=== PATIENT | male | born 1990 | race Caucasian/White ===

== ENCOUNTER 2018-02-24 14:00 | Emergency (ER) | payer MEDICAID ==
[~2018-02-24] VITALS: Ht 167.6 cm; Wt 62.6 kg
[2018-02-24 14:08] VITALS: Ht 167.6 cm; Wt 62.6 kg
[2018-02-24 16:02] LABS: PLATELET COUNT 185 x10^3mcL (130-400); RED CELL DISTRIBUTION WIDTH 13.4 % (11.5-14.5)
[2018-02-24 16:15] LABS: CALCIUM 8.7 mg/dL (8.5-10.1); CARBON DIOXIDE 29.2 mmol/L (21-32); CHLORIDE SERUM 100 mmol/L (98-107); GFR1 > 60 mL/min; GLUCOSE SERUM 111 mg/dL (74-106); POTASSIUM SERUM 3.6 mmol/L (3.5-5.1); SODIUM SERUM 135 mmol/L (136-145)
[2018-02-24 16:22] LABS: ALBUMIN 3.9 g/dL (3.4-5.0); ALKALINE PHOSPHATASE 86 U/L (46-116); ALT/SGPT 24 U/L (16-63); AST/SGOT 16 U/L (15-37); BILIRUBIN TOTAL 0.2 mg/dL (0.20-1.00); LIPASE 98 IU/L (73-393); TOTAL PROTEIN, SERUM 7.7 g/dL (6.4-8.2)
[2018-02-24 18:25] VITALS: BP 142/84
== END 2018-02-24 18:25 | disposition home or self-care (01) ==
LOC: ED 14:00
PROVIDERS: Emergency Medicine
DX: R10.9 Unspecified abdominal pain (principal); R50.9 Fever, unspecified; R11.10 Vomiting, unspecified
CPT/HCPCS: 36415

== ENCOUNTER 2018-09-23 14:43 | Emergency (ER) | payer MEDICAID ==
[~2018-09-23] VITALS: Ht 167.6 cm; Wt 64.4 kg
[2018-09-23 14:46] VITALS: Ht 167.6 cm; Wt 64.4 kg
[2018-09-23 16:08] LABS: UA SPECIFIC GRAVITY >=1.030 (1.005-1.035); microscopic required? YES; urine erythrocyte 2+ (NEGATIVE)
[2018-09-23 17:26] VITALS: BP 131/82
== END 2018-09-23 17:26 | disposition home or self-care (01) ==
LOC: ED 14:43
PROVIDERS: Emergency Medicine
DX: R30.0 Dysuria (principal); R36.9 Urethral discharge, unspecified; R31.9 Hematuria, unspecified
CPT/HCPCS: J0696

== ENCOUNTER 2018-10-24 21:11 | Emergency (ER) | payer MEDICAID ==
[~2018-10-24] VITALS: Ht 167.6 cm; Wt 62.3 kg
[2018-10-24 21:31] VITALS: BP 118/83; Ht 167.6 cm; Wt 62.3 kg
[2018-10-24 23:26] LABS: CALCIUM 7.9 mg/dL (8.5-10.1); CARBON DIOXIDE 26.5 mmol/L (21-32); CHLORIDE SERUM 102 mmol/L (98-107); GFR1 > 60 mL/min; GLUCOSE SERUM 87 mg/dL (74-106); SODIUM SERUM 138 mmol/L (136-145)
[2018-10-24 23:28] LABS: POTASSIUM SERUM 2.8 mmol/L (3.5-5.1)
== END 2018-10-25 00:04 | disposition home or self-care (01) ==
LOC: ED 21:11
PROVIDERS: Emergency Medicine
DX: K52.9 Noninfective gastroenteritis and colitis, unspecified (principal); E87.6 Hypokalemia
CPT/HCPCS: 36415

== ENCOUNTER 2018-10-25 19:29 | Emergency (ER) | payer MEDICAID ==
[~2018-10-25] VITALS: Ht 167.6 cm; Wt 63.5 kg
[2018-10-25 19:54] VITALS: Ht 167.6 cm; Wt 63.5 kg
[2018-10-25 20:27] LABS: BASOPHIL % 0.4 % (0-2); PLATELET COUNT 219 x10^3mcL (130-400); RED CELL DISTRIBUTION WIDTH 13.7 % (11.5-14.5)
[2018-10-25 20:35] LABS: CALCIUM 7.9 mg/dL (8.5-10.1); CARBON DIOXIDE 27.3 mmol/L (21-32); CHLORIDE SERUM 99 mmol/L (98-107); GFR1 > 60 mL/min; GLUCOSE SERUM 98 mg/dL (74-106); POTASSIUM SERUM 3.1 mmol/L (3.5-5.1); SODIUM SERUM 136 mmol/L (136-145)
[2018-10-25 20:39] LABS: ALBUMIN 3.6 g/dL (3.4-5.0); ALKALINE PHOSPHATASE 73 U/L (46-116); ALT/SGPT 30 U/L (16-63); AST/SGOT 22 U/L (15-37); BILIRUBIN TOTAL 0.4 mg/dL (0.20-1.00); LIPASE 41 IU/L (73-393); TOTAL PROTEIN, SERUM 7.5 g/dL (6.4-8.2)
[2018-10-25 20:41] LABS: AMYLASE 22 U/L (25-115)
[2018-10-25 22:45] VITALS: BP 123/65
== END 2018-10-25 22:45 | disposition home or self-care (01) ==
LOC: ED 19:29
PROVIDERS: Emergency Medicine
DX: K29.70 Gastritis, unspecified, without bleeding (principal); E87.6 Hypokalemia
CPT/HCPCS: 36415